=== PATIENT | male | born 1990 | race Caucasian/White ===

== ENCOUNTER 2016-11-25 11:21 | Emergency (ER) | payer OTHER ==
[2016-11-25 14:11] LABS: BASO % 0.1 % (0-2); EOS % 0.1 % (0-7); HCT-HEMATOCRIT 41.5 % (36.0-53.5); HGB-HEMOGLOBIN 14.5 gm/dl (13.5-17.0); IMMATURE GRANULOCYTES ABSOLUTE 0.04 tho/cmm (0-0.03); IMMATURE GRANULOCYTES PERCENT 0.3 % (0-0.3); LYMPH % 11.6 % (20-45); LYMPH ABSOLUTE COUNT 1.8 tho/cmm (0.8-4.5); MCH (MEAN CORPUSCULAR HGB) 29.7 pg (28.0-32.0); MCHC MEAN CORPUSCULAR HGB CONC 34.9 % (32.0-36.0); MCV (MEAN CELL VOLUME) 84.9 fl (82.0-96.0); MEAN PLATELET VOLUME 9.8 cmc (9.4-12.4); MONO % 9.9 % (0-12); MONOCYTE ABSOLUTE COUNT 1.5 tho/cmm (0.0-1.2); PLATELET COUNT 313 tho/cmm (150-450); RED BLOOD COUNT 4.89 mil/cmm (4.40-5.70); RED CELL DISTRIBUTION WIDTH 12.7 % (12.4-16.4); WHITE BLOOD COUNT 15.4 tho/cmm (4.0-10.0)
[2016-11-25 14:24] LABS: ANION GAP 14 mmol/L (0-20); BLOOD UREA NITROGEN 8 mg/dl (6-24); CALCIUM 9.1 mg/dl (8.5-10.5); CARBON DIOXIDE-VENOUS 26 mmol/L (22-32); CHLORIDE 100 mmol/l (96-110); GLUCOSE 90 mg/dL (70-110); SODIUM 136 mmol/L (135-145); eGFR VALUE FOR BLACK >90 mL/Min
[2016-11-25 14:27] LABS: POTASSIUM 3.9 mmol/L (3.7-5.1)
[2016-11-25] MEDS ORDERED: BACTRIM DS TAB1 EAC2 PO (15:57)
[2016-11-25] MEDS ORDERED: NORCO 5-325 TA1 EACH PO (15:57)
[2016-11-25] MEDS ORDERED: KEFLEX500 M4 PO (15:57)
== END 2016-11-25 16:40 ==
LOC: EDMED 11:21
PROVIDERS: Physician Assistant
DX: L05.91 Pilonidal cyst without abscess (principal)
CPT/HCPCS: J2270; J2405; J7030; Q9967